=== PATIENT | female | born 1970 | race Caucasian/White ===

== ENCOUNTER 2016-08-20 00:38 | Emergency (ER) | payer MEDICAID ==
[2016-08-20 05:08] VITALS: BP 118/79
== END 2016-08-20 05:08 | disposition home or self-care (01) ==
LOC: ED 00:38
DX: R51 Headache (principal); I10 Essential (primary) hypertension; E03.9 Hypothyroidism, unspecified
CPT/HCPCS: J1200; J1885; J2765; J7030

== ENCOUNTER 2017-04-11 02:58 | Emergency (ER) | payer MEDICAID ==
[2017-04-11 08:27] VITALS: BP 125/68
== END 2017-04-11 08:27 | disposition home or self-care (01) ==
LOC: ED 02:58
DX: R51 Headache (principal); M25.512 Pain in left shoulder; M25.511 Pain in right shoulder; M54.2 Cervicalgia; E11.9 Type 2 diabetes mellitus without complications; E07.9 Disorder of thyroid, unspecified; Z79.4 Long term (current) use of insulin; Z88.0 Allergy status to penicillin
CPT/HCPCS: 82962; J1100; J1885; J2270; J2765; J7030

== ENCOUNTER 2018-06-22 12:59 | Emergency (ER) | payer MEDICAID ==
[~2018-06-22] VITALS: Ht 162.6 cm; Wt 72.6 kg
[2018-06-22 16:31] VITALS: BP 117/80
== END 2018-06-22 16:31 | disposition home or self-care (01) ==
LOC: ED 12:59
DX: G43.909 Migraine, unspecified, not intractable, without status migrainosus (principal); E11.9 Type 2 diabetes mellitus without complications; Z90.710 Acquired absence of both cervix and uterus; Z88.0 Allergy status to penicillin
CPT/HCPCS: J1200; J2765; J7030

== ENCOUNTER 2018-10-27 17:43 | Emergency (ER) | payer MEDICAID ==
[~2018-10-27] VITALS: Ht 167.6 cm; Wt 70.8 kg
[2018-10-27 17:45] VITALS: Ht 167.6 cm; Wt 70.8 kg
[2018-10-27 19:01] VITALS: BP 148/86
== END 2018-10-27 19:01 | disposition home or self-care (01) ==
LOC: ED 17:43
DX: G43.909 Migraine, unspecified, not intractable, without status migrainosus (principal); E11.9 Type 2 diabetes mellitus without complications; Z90.710 Acquired absence of both cervix and uterus; Z88.0 Allergy status to penicillin
CPT/HCPCS: J1885; J2765